=== PATIENT | female | born 1985 | race Caucasian/White ===

== ENCOUNTER 2016-10-28 10:04 | Emergency (ER) | payer MEDICAID ==
[2016-10-28 10:39] VITALS: BP 160/89
--- NOTE | 2016-10-28 10:50 | UC ---
Skin Complaint HPI - HPI Summary HPI Summary: 31 y/o female presents to the urgent care for wound check up. Pt reports she just had her 3rd done approximately 3 weeks ago. She noticed about 2 days ago that is mild redness and moderated draining w/ bloody yellow drainage at times. Her delivered was done at [place]. She just moved to [place] and doesn't have an OBGYN. Pain is 4/10 specially at touch and with bending. She has not taking anything to alleviate symptoms. LMP: 11/20/2015. She also states she develop elevated BP at the end of her . Pt denies fever, SOB, chest pain, abdominal pain. N/V/D., - History of Current Complaint Chief Complaint: UCWounds Time Seen by Provider: 10/28/16 10:40 Stated Complaint: WOUND RECHECK Hx Obtained From: Patient Hx Last Menstrual Period: currently ?: No Onset/Duration: Gradual Onset, Lasting Days - 2, Still Present Skin Exposure Onset/Duration: Weeks Ago - 3 weeks ago c-sectione performed Onset Severity: Mild Current Severity: Moderate Pain Intensity: 4 Pain Scale Used: 0-10 Numeric Location: Discrete - above the suprapubic area w/ scar Character: Redness, Painful Aggravating: Touch Alleviating: Nothing Associated Signs & Symptoms: Positive: Negative, Tenderness. Negative: Nausea, Vomiting, Numbness, Fever, Chills, Abdominal Pain Related History: Other: - - Allergy/Home Medications Allergies/Adverse Reactions: Allergies Allergy/AdvReac Type Severity Reaction Status Date / Time Latex Allergy Rash Verified 10/28/16 10:35 Home Medications: Home Medications Amoxicillin PO (*) [Amoxicillin 875 MG (*)] 10/28/16 [History] Review of Systems Constitutional: Negative Skin: Rash - over the above the suprapubic area Eyes: Negative ENT: Negative Respiratory: Negative, Shortness Of Breath Gastrointestinal: Negative Genitourinary: Negative Motor: Negative Neurovascular: Negative Musculoskeletal: Negative Neurological: Negative Psychological: Negative Is Patient Immunocompromised?: No All Other Systems Reviewed And Are Negative: Yes PMH/Surg Hx/FS Hx/Imm Hx Previously Healthy: Yes - Pt denies any PMHX - Surgical History Surgical History: Yes Surgery Procedure, Year, and Place: 3 c-sections - Family History Known Family History: Positive: Cardiac Disease, Hypertension, Diabetes - Social History Occupation: Unemployed Lives: With Family Alcohol Use: None Substance Use Type: None Smoking Status (MU): Heavy Every Day Tobacco Smoker Type: Cigarettes Amount Used/How Often: 1/2 PPD Length of Time of Smoking/Using Tobacco: 14 years Physical Exam Triage Information Reviewed: Yes Appearance: Well-Appearing, No Pain Distress, Well-Nourished, Obese Vital Signs: Initial Vital Signs Temp 98.3 F 10/28/16 10:36 Pulse 66 10/28/16 10:36 Resp 16 10/28/16 10:36 BP 160/89 10/28/16 10:36 Pulse Ox 99 10/28/16 10:36 Vital Signs Reviewed: Yes Eye Exam: Normal - PERRLA, EOMI ENT Exam: Normal ENT: Positive: Normal ENT inspection, Hearing grossly normal, Pharynx normal, TMs normal Neck exam: Normal Neck: Positive: Supple, Nontender, No Lymphadenopathy Respiratory Exam: Normal Respiratory: Positive: Chest non-tender, Lungs clear, Normal breath sounds, No respiratory distress Cardiovascular Exam: Normal Cardiovascular: Positive: RRR, No Murmur, Pulses Normal Abdominal Exam: Normal Abdomen Description: Positive: Nontender, No Organomegaly, Soft. Negative: CVA Tenderness (R), CVA Tenderness (L) Bowel Sounds: Positive: Present Musculoskeletal Exam: Normal Musculoskeletal: Positive: Strength Intact, ROM Intact, No Edema Neurological Exam: Normal Psychological Exam: Normal Skin: Positive: rashes - scar above the suprapubic area and below abdominal skin fold, about 15 cm in size, healing well except for 2 points with mild discrete erythema and 1 mid point draining mild serosanguinous discharge. mild tenderness on deep palpation. no swellingobserved. Course/Dx - Course Course Of Treatment: 31 y/o female presents to the urgent care for c- section wound check up. Pt reports she just had her 3rd done approximately 3 weeks ago. She noticed about 2 days ago that is mild redness and moderated draining w/ bloody yellow drainage at times. Her delivered was done at [place]. She just moved to [place] and doesn't have an OBGYN. Pain is 4 /10 specially at touch and with bending. She has not taking anything to alleviate symptoms. LMP: 11/20/2015. She also states she develop elevated BP at the end of her . Pt denies fever, SOB, chest pain, abdominal pain. N/V /D., Hx obtained. PE abnormal findings:Skin: Positive: rashes - scar above the suprapubic area and below abdominal skin fold, about 15 cm in size, healing well except for 2 points with mild discrete erythema and 1 mid point draining mild serosanguinous discharge. mild tenderness on deep palpation. no swelling observed. Pt Rx Bacitracin topical cream and advised. Pt advised If redness or develops swelling or fever to please f/u with Dr Dupree Surgeon for further evaluation and treatment of your wound. All Pt questions were answered. Pt BP pressure is elevated today w/o Hx of HTN, advised to decrease salt in her diet , monitor BP and if it continues to be elevated to f/u with a PCP from the [facility] for further evaluation and treatment. Pt undertood and agreed. Left the clinic ambulating. A&OX3 - Differential Diagnoses - Skin Complaint Differential Diagnoses: Abscess, Angioedema, Cellulitis, Local Allergic Reaction , Urticaria - Diagnoses Provider Diagnoses: 1- wound check s/o C-setion. 2-rash - Physician Notification/Consults Discussed Patient Care With: Orlando Keating - Dr Keating agreed with Pt care and plan Discharge - Discharge Plan Condition: Stable Disposition: HOME Prescriptions: Bacitracin OINTMENT* 1 applic TOPICAL TID #1 tube Patient Education Materials: Low Sodium Diet (ED), Surgical Site Infections (ED ) Referrals: No Primary Care Phys,NOPCP [Primary Care Provider] - [facility] PHYSICIAN REFERRAL [Outside] Reny Dupree MD [Medical Doctor] - 3 Days Additional Instructions: 1- Please apply topical antibiotic on affected areas as directed, Kepp wound dry and clean. 2- If redness and swelling increases and you develop fever please f/u with Dr Dupree Surgeon for further evaluation and treatment of your wound. 3-Avoid heavy lifting, bending over or strenuous exercise 4- Your BP today is elevated, please decrease salt in your diet, monitor your BP , if it continues to be elevated please f/y with your PCP for further management.
== END 2016-10-28 11:25 | disposition home or self-care (01) ==
LOC: UCEAST 10:04
DX: J02.8 Acute pharyngitis due to other specified organisms (principal); B97.89 Other viral agents as the cause of diseases classified elsewhere
CPT/HCPCS: 99212; G0463

== ENCOUNTER 2017-04-28 18:12 | Emergency (ER) | payer MEDICAID, OTHER ==
--- NOTE | 2017-04-28 19:56 | UC ---
HPI Febrile Illness - HPI Summary HPI Summary: 31 yo smoker p/w ongoing fever x 2 days that is responding to Tylenol but still seems to come back. Fever is associated with body aches and chills. - History of Current Complaint Chief Complaint: UCRespiratory Time Seen by Provider: 04/28/17 19:42 Hx Obtained From: Patient Hx Last Menstrual Period: inplanon Timing: Constant, Lasting Days Initial Severity: Moderate Current Severity: Moderate Pain Intensity: 0 - Allergy/Home Medications Allergies/Adverse Reactions: Allergies Allergy/AdvReac Type Severity Reaction Status Date / Time latex Allergy Rash Verified 04/28/17 18:34 Home Medications: Home Medications Acetaminophen [Extra Strength Non-Aspirin] 2,000 mg PO 04/28/17 [History] PMH/Surg Hx/FS Hx/Imm Hx Previously Healthy: Yes Respiratory History: Other - smokers cough Other Respiratory History: smoker's cough - Surgical History Surgical History: Yes Surgery Procedure, Year, and Place: 3 c-sections - Family History Known Family History: Positive: Cardiac Disease, Hypertension, Diabetes - Social History Alcohol Use: None Substance Use Type: None Smoking Status (MU): Heavy Every Day Tobacco Smoker Type: Cigarettes Amount Used/How Often: 1/2 PPD Length of Time of Smoking/Using Tobacco: 14 years Review of Systems Constitutional: Fever, Chills, Fatigue Skin: Negative Eyes: Negative ENT: Negative Respiratory: Cough, Other - left chest wall pain with cough Cardiovascular: Negative Gastrointestinal: Negative Genitourinary: Negative Motor: Negative Neurovascular: Negative Musculoskeletal: Negative Neurological: Negative Psychological: Negative All Other Systems Reviewed And Are Negative: Yes Physical Exam Triage Information Reviewed: Yes Appearance: No Pain Distress, Ill-Appearing Vital Signs: Initial Vital Signs Temp 36.8 C 04/28/17 18:31 Pulse 87 04/28/17 18:31 Resp 18 04/28/17 18:31 BP 142/91 04/28/17 18:31 Pulse Ox 100 04/28/17 18:31 Eye Exam: Normal ENT Exam: Normal ENT: Positive: Normal ENT inspection Dental Exam: Normal Neck exam: Normal Neck: Positive: 1 Respiratory: Positive: Other: - coarse BS B/L, pleuritic chest wall pain with cough on left mid-axillary line Cardiovascular Exam: Normal Abdominal Exam: Normal Musculoskeletal: Positive: Other: - diffuse muscle tenderness Neurological Exam: Normal Psychological Exam: Normal Skin Exam: Normal Course/Dx - Course Course Of Treatment: CXR neg for acute infiltrates but s/s c/w bronchitis - Diagnoses Clinic Provider Diagnoses: acute bronchitis. Flu-like illness. viral syndrome. Elevated BP in acute illness Discharge - Discharge Plan Condition: Stable Disposition: HOME Prescriptions: Azithromycin TAB* [Zithromax TAB (Z-MOOSE) 250 mg #6 tabs] 2 tab PO .TODAY, THEN 1 DAILY #1 moose Oseltamivir CAP* [Tamiflu CAP*] 75 mg PO BID 5 Days #10 cap Patient Education Materials: Acute Bronchitis (ED), Viral Syndrome (ED) Referrals: No Primary Care Phys,NOPCP [Primary Care Provider] - Additional Instructions: take medication as directed and continue fever control
--- NOTE | 2017-04-28 20:14 | RAD ---
HISTORY: Pleuritic chest pain COMPARISONS: August 21, 2004 VIEWS: 4: Frontal dual-energy and lateral views of the chest. FINDINGS: CARDIOMEDIASTINAL SILHOUETTE: The cardiomediastinal silhouette is normal. DEBI: The debi are normal. PLEURA: The costophrenic angles are sharp. No pleural abnormalities are noted. LUNG PARENCHYMA: The lungs are clear. ABDOMEN: The upper abdomen is clear. There is no subphrenic gas. BONES AND SOFT TISSUES: No bone or soft tissue abnormalities are noted. OTHER: None. IMPRESSION: NO ACTIVE CARDIOPULMONARY DISEASE.
[2017-04-28 20:37] VITALS: BP 138/93
== END 2017-04-28 21:00 | disposition home or self-care (01) ==
LOC: UCEAST 18:12
DX: F17.210 Nicotine dependence, cigarettes, uncomplicated (principal); J20.9 Acute bronchitis, unspecified; B34.9 Viral infection, unspecified; R03.0 Elevated blood-pressure reading, without diagnosis of hypertension; R50.9 Fever, unspecified; R52 Pain, unspecified
CPT/HCPCS: 71046; 87502; 99212; G0463

== ENCOUNTER 2017-11-25 11:20 | Emergency (ER) | payer OTHER ==
[2017-11-25 11:38] VITALS: BP 164/95
--- NOTE | 2017-11-25 11:41 | UC ---
Skin Complaint HPI - HPI Summary HPI Summary: This patient is a 32-year-old female who presents to the urgent care with chief complaint of having an infection in the left thigh. She thinks that she got an ingrown hair with a goel which she tried to squeeze out. Now the patient reports pain erythema and increase in temperature. She denies any fever, chills , any calf pain. She has no other complaints. - History of Current Complaint Time Seen by Provider: 11/25/17 11:25 Stated Complaint: LEG PAIN Hx Last Menstrual Period: inplanon - Allergy/Home Medications Allergies/Adverse Reactions: Allergies Allergy/AdvReac Type Severity Reaction Status Date / Time latex Allergy Rash Verified 11/25/17 11:31 Review of Systems Constitutional: Negative All Other Systems Reviewed And Are Negative: Yes - Comments Additional Review of Systems Comments: Constitutional: No Weight Change, No Fever, No Chills, No Night Sweats, No Fatigue, No Malaise ENT/Mouth: No Hearing Changes, No Ear Pain, No Nasal Congestion, No Sinus Pain, No Hoarseness, No sore throat, No Rhinorrhea, No Swallowing Difficulty Eyes: No Eye Pain, No Swelling, No Redness, No Foreign Body, No Discharge, No Vision Changes Cardiovascular: No Chest Pain, No SOB, No PND, No Dyspnea on Exertion, No Orthopnea, No Claudication, No Edema, No Palpitations Respiratory: No Cough, No Sputum, No Wheezing, No Smoke Exposure, No Dyspnea Gastrointestinal: No Nausea, No Vomiting, No Diarrhea, No Constipation, No Pain , No Heartburn, No Anorexia, No Dysphagia, No Hematochezia, No Melena, No Flatulence, No Jaundice Genitourinary: No Dysmenorrhea, No Dyspareunia, No Dysuria, No Urinary Frequency , No Hematuria, No Urinary Incontinence, No Urgency, No Flank Pain, No Urinary Flow Changes, No Hesitancy Musculoskeletal: No Arthralgias, No Myalgias, No Joint Swelling, No Joint Stiffness, No Back Pain, No Neck Pain, No Injury History Skin: Positive erythema with irregular borders, and tenderness to palpation, and increase in temperature in the left eye and then reapproximated of 5-5 cm. There is a positive induration of the skin, there is no abscess formation at this time. PMH/Surg Hx/FS Hx/Imm Hx Previously Healthy: Yes - Surgical History Surgical History: Yes Surgery Procedure, Year, and Place: 3 c-sections - Family History Known Family History: Positive: Cardiac Disease, Hypertension, Diabetes - Social History Alcohol Use: None Substance Use Type: None Smoking Status (MU): Heavy Every Day Tobacco Smoker Type: Cigarettes Amount Used/How Often: 1/2 PPD Length of Time of Smoking/Using Tobacco: 14 years Physical Exam - Summary Physical Exam Summary: VITAL SIGNS: Reviewed. GENERAL: Patient is an obese female who is sitting comfortable in the stretcher. Patient is not in any acute respiratory distress. HEAD AND FACE: Normocephalic and atraumatic. EYES: PERRLA, EOMI x 2, EARS: Hearing grossly intact. MOUTH: Oropharynx within normal limits. NECK: Supple, trachea is midline, no adenopathy, no JVD, no carotid bruit, no c- spine tenderness, neck with full ROM. CHEST: Symmetric, no tenderness at palpation LUNGS: CTA B/L. No wheezing or crackles. CVS: RRR, S1 and S2 present, no murmurs or gallops appreciated. ABDOMEN: Soft, NT, No distention. Normal BS. EXTREMITIES: FROM in all major joints, no edema, no cyanosis or clubbing. NEURO: Alert and oriented x 3. No acute neurological deficits. Speech is normal and follows commands. SKIN: Positive erythema, swelling, increase in temperature, in the left thigh. The area is approximately 5 cm 5 cm. He has irregular borders. There is a positive skin induration. No abscess formation. Triage Information Reviewed: Yes Vital Signs Reviewed: Yes Course/Dx - Course Course Of Treatment: It seems that the patient is dealing with a cellulitis in the left eye. At this time there is no abscess formation therefore no need for an I&D. At this time the patient will be given Bactrim for the cellulitis and she will be discharged home with follow-up with primary care physician. She was given instructions that if the pain increases, the area of the cellulitis increases she should return to the urgent care or go to the emergency department for reassessment. The patient understands and agrees. Patient is hemodynamically stable alert and oriented 3. ELEVATED BLOOD PRESSURE: Patient s blood pressure was noted to be elevated. The patient was instructed to follow up with primary care provider for reassessment of increased blood pressure. - Differential Diagnoses - Skin Complaint Differential Diagnoses: Abscess, Cellulitis, Local Allergic Reaction, Poison Nya , Poison Kelliher - Diagnoses Provider Diagnoses: Cellulitis Discharge - Sign-Out/Discharge Documenting (check all that apply): Patient Departure All imaging exams completed and their final reports reviewed: No Studies - Discharge Plan Condition: Stable Disposition: HOME Prescriptions: Sulfamethox/Trimethoprim DS* [Bactrim DS 800/160 TAB*] 1 tab PO BID #20 tab Patient Education Materials: Cellulitis (DC) Referrals: Gaby French MD [Primary Care Provider] - Additional Instructions: Take medications as instructed and adhere to plan Take Acetaminophen or ibuprofen for pain or fever Increase your fluid intake Return to the or go to the emergency department if symptoms worsen Follow-up with primary care physician in next 2-3 days - Billing Disposition and Condition Condition: STABLE Disposition: Home
== END 2017-11-25 11:50 | disposition home or self-care (01) ==
LOC: UCEAST 11:20
DX: L03.116 Cellulitis of left lower limb (principal); E66.9 Obesity, unspecified; R03.0 Elevated blood-pressure reading, without diagnosis of hypertension; Z91.040 Latex allergy status; F17.210 Nicotine dependence, cigarettes, uncomplicated
CPT/HCPCS: 99212; G0463

== ENCOUNTER 2017-11-27 10:40 | Emergency (ER) | payer OTHER ==
[2017-11-27 11:14] VITALS: BP 150/98
--- NOTE | 2017-11-27 11:39 | UC ---
Skin Complaint HPI - HPI Summary HPI Summary: 32 yo female presents with abscess to left thigh. She tells me that she was seen here 2 days ago and dx'd with cellulitis and placed on Bactrim. She has been taking the Bactrim, but today has noticed the area is hard and swollen and thinks it could be drained. Denies fever or chills. - History of Current Complaint Chief Complaint: UCSkin Time Seen by Provider: 11/27/17 11:38 Stated Complaint: RECHECK OF SKIN ISSUE Hx Obtained From: Patient Hx Last Menstrual Period: inplanon Onset/Duration: Gradual Onset Onset Severity: Moderate Current Severity: Severe Pain Intensity: 9 Pain Scale Used: 0-10 Numeric - Allergy/Home Medications Allergies/Adverse Reactions: Allergies Allergy/AdvReac Type Severity Reaction Status Date / Time latex Allergy Rash Verified 11/27/17 11:14 Review of Systems Constitutional: Negative Skin: Other - Abscess left thigh Respiratory: Negative Cardiovascular: Negative Neurovascular: Negative Neurological: Negative Psychological: Negative All Other Systems Reviewed And Are Negative: Yes PMH/Surg Hx/FS Hx/Imm Hx - Additional Past Medical History Additional PMH: None - Surgical History Surgical History: Yes Surgery Procedure, Year, and Place: 3 c-sections - Family History Known Family History: Positive: Cardiac Disease, Hypertension, Diabetes - Social History Occupation: Employed Full-time Lives: With Family Alcohol Use: Occasionally Substance Use Type: Marijuana Substance Use Comment - Amount & Last Used: once a month Smoking Status (MU): Light Every Day Tobacco Smoker Type: Cigarettes Amount Used/How Often: 1/2 PPD Length of Time of Smoking/Using Tobacco: 14 years Physical Exam - Summary Physical Exam Summary: Vital Signs: Temp Pulse Resp BP Pulse Ox 97.9 F 73 18 150/98 100 11/27/17 11:10 11/27/17 11:10 11/27/17 11:10 11/27/17 11:10 11/27/17 11:10 GENERAL: NAD. WDWN. No pain distress. SKIN: LEFT THIGH: Anteriolateral aspect with 2.0cm area of induration and tenderness. Surround 6.0cm of mild erythema and warmth. No streaking, bleeding, or drainage. NECK: Supple. Nontender. No lymphadenopathy. CHEST: No accessory muscle use. Breathing comfortably and in no distress. CV: Pulses intact. Cap refill <2seconds NEURO: Alert. PSYCH: Age appropriate behavior. Triage Information Reviewed: Yes Vital Signs: Initial Vital Signs Temp 97.9 F 11/27/17 11:10 Pulse 73 11/27/17 11:10 Resp 18 11/27/17 11:10 BP 150/98 11/27/17 11:10 Pulse Ox 100 11/27/17 11:10 Vital Signs Reviewed: Yes Course/Dx - Course Course Of Treatment: The procedure was explained to the pt and all questions were answered. A time out was performed, witnessed, and signed. The area was cleansed with an alcohol pad. 2mL of 2% lidocaine without epi was administered and good anesthetization was achieved. A #11 blade was used to bogdan the center of the abscess. Copious think yellow purulent matter was able to be expressed. The wound was bandaged with telfa. Pt tolerated procedure well. - Diagnoses Provider Diagnoses: Abscess left thigh Procedures - Incision and Drainage Left Upper Thigh Anesthesia: Local Instrument(s): Scalpel Packing: Other - None Discharge - Sign-Out/Discharge Documenting (check all that apply): Patient Departure All imaging exams completed and their final reports reviewed: No Studies - Discharge Plan Condition: Stable Disposition: HOME Prescriptions: traMADol TAB* [Ultram*] 50 mg PO Q12H PRN #6 tab MDD 2 PRN Reason: Pain Patient Education Materials: Abscess (ED) Referrals: Gaby French MD [Primary Care Provider] - Additional Instructions: If you develop a fever, shortness of breath, chest pain, new or worsening symptoms - please call your PCP or go to the ED. Your blood pressure was high at todays visit. Please see your primary provider within 4 weeks for recheck and re-evaluation. 1) Keep the area covered until well healed. 2) Continue taking your antibiotic - Billing Disposition and Condition Condition: STABLE Disposition: Home
[2017-11-27] MEDS ORDERED: Lidocaine 2% PF * 5 ML VIAL INJ ONE (11:42)
== END 2017-11-27 12:45 | disposition home or self-care (01) ==
LOC: UCEAST 10:40
DX: L02.416 Cutaneous abscess of left lower limb (principal); Z91.040 Latex allergy status; F17.210 Nicotine dependence, cigarettes, uncomplicated
CPT/HCPCS: 10060; 99212; G0463

== ENCOUNTER 2018-08-13 08:45 | Inpatient (IN) | payer MEDICAID, OTHER ==
[2018-09-30] MEDS ORDERED: Buffered Lidocaine 1% SYRIN* 1 ML/SYRINGE INTRADERM ONE (14:19)
[2018-10-01] MEDS ORDERED: Lactated Ringers 1000 ML Bag* 1,000 ML IV SCH (06:00)
[2018-10-01] MEDS ORDERED: Famotidine IV* 10 MG/ML 2 ML (20 mg) IV ONE (06:00)
[2018-10-01] MEDS ORDERED: Scopolamine 1.5 mg* PATCH TRANSDERM ONE (06:00)
[2018-10-01] MEDS ORDERED: Heparin VIAL(*) 5000 UNITS/ML VIAL (FIVE THOUSAND) ONE (08:54)
[2018-10-01] MEDS ORDERED: Buffered Lidocaine 1% SYRIN* 1 ML/SYRINGE INTRADERM ONE (08:54)
[2018-10-01] MEDS ORDERED: Scopolamine 1.5 mg* PATCH ONE (08:54)
[2018-10-01] MEDS ORDERED: ceFAZolin 2 GM in NS PREMIX(*) 2 GM/100 ML BAG IVPB ONE (08:55)
[2018-10-01] MEDS ORDERED: ceFAZolin 1 GM ADVAN(*) 1 GM ADDV.VIAL IVPB ONE (08:55)
[2018-10-01] MEDS ORDERED: Famotidine IV* 10 MG/ML 2 ML (20 mg) ONE (08:55)
[2018-10-01 09:43] LABS: Urine Appearance Turbid; Urine Bacteria Absent (Absent); Urine Bilirubin Negative (Negative); Urine Blood Negative (Negative); Urine Color Amber; Urine Glucose Negative (Negative); Urine Ketones Negative (Negative); Urine Nitrite Negative (Negative); Urine Protein Negative (Negative); Urine Red Blood Cell 2+(6-10/hpf) (Absent); Urine Specific Gravity 1.019 (1.010-1.030); Urine Squamous Epithelial Cell Present (Absent); Urine Urobilinogen Negative (Negative); Urine White Blood Cell Trace(0-5/hpf) (Absent)
[2018-10-01] MEDS ORDERED: Midazolam* 1 MG/ML 5 ML VIAL (5 MG) ONE (10:16)
[2018-10-01] MEDS ORDERED: Lidocaine 2% PF * 5 ML VIAL ONE (10:16)
[2018-10-01] MEDS ORDERED: Rocuronium* 10 MG/ML VIAL ONE (10:16)
[2018-10-01] MEDS ORDERED: Dexamethasone IV* 4 MG/ML 1 ML (4 MG) ONE (10:16)
[2018-10-01] MEDS ORDERED: KETAMINE HCL* 50 MG/ML 10 ML VIAL ONE (10:16)
[2018-10-01] MEDS ORDERED: Propofol* 10 MG/ML 20 ML BTL ONE (10:16)
[2018-10-01] MEDS ORDERED: fentaNYL* 50 MCG/ML 5 ML VIAL (250 MCG VIAL) ONE (10:16)
[2018-10-01] MEDS ORDERED: Ondansetron INJ* 2 MG/ML VIAL ONE ×2 (10:16→15:07)
[2018-10-01] MEDS ORDERED: Bupivacaine 0.25% EPI 200,000* 30 ML SDV ONE (11:34)
[2018-10-01] MEDS ORDERED: Methylene Blue 0.5 %* 50 MG/10 ML AMP IV ONE (11:49)
[2018-10-01] MEDS ORDERED: Glycopyrrolate IV* 0.2 MG/ML 1 ML VIAL ONE (13:14)
[2018-10-01] MEDS ORDERED: Neostigmine Methylsulfate* 1 MG/ML 10 ML VIAL (1 mg/ml) ONE (13:14)
[2018-10-01] MEDS ORDERED: HYDROmorphone INJ1* 1 MG/ML SYRINGE ONE (13:14)
[2018-10-01] MEDS ORDERED: Naloxone* 0.4 MG/ML 1 ML VIAL IV PRN (13:16)
[2018-10-01] MEDS ORDERED: Ondansetron INJ* 2 MG/ML VIAL IV PRN (13:16)
[2018-10-01] MEDS ORDERED: fentaNYL* 50 MCG/ML 2 ML VIAL (100 MCG VIAL) ONE ×4 (13:26→16:04)
[2018-10-01] MEDS ORDERED: HYDROmorphone INJ1* 1 MG/ML SYRINGE IV SLOW PU PRN (13:57)
[2018-10-01] MEDS ORDERED: diPHENhydraMINE IV* 50 MG/ML 1 ml VIAL (BENADRYL) SLOW PUSH PRN (13:57)
[2018-10-01] MEDS ORDERED: Acetaminophen ADULT LIQ* 650 MG/20.3 ML UDC PO PRN (13:57)
--- NOTE | 2018-10-01 13:57 | OP ---
Operative Report - Blank - Operative Report Date of Operation: 10/01/18 Note: Brief Operative Note Preop Dx: Class II obesity with comorbidities Postop Dx: same Procedure: Laparoscopic Octavia en Y gastric bypass Anesthesia: GET Surgeon: Lina Pediatric Lpn: ZULLY Woo; SOHAM Dave Fluids: 1600ml RL EBL: < 50 ml Specimen: none Drains: none Findings: as above Complications: none
[2018-10-01] MEDS ORDERED: Metoprolol Tartrate IV* 1 MG/ML 5 ML VIAL IV PRN (14:04)
[2018-10-01] MEDS: fentaNYL* 50 MCG/ML 2 ML VIAL (100 MCG VIAL) IV PRN ×5 (14:10→16:05)
[2018-10-01] MEDS ORDERED: Labetalol IV* 5 MG/ML 20 ML VIAL ONE (14:18)
[2018-10-01] MEDS ORDERED: hydrALAZINE IV* 20 MG/ML VIAL ONE (15:24)
[2018-10-01] MEDS: Lactated Ringers 1000 ML Bag* 1,000 ML IV SCH ×2 (16:43→23:18)
[2018-10-01] MEDS: Ondansetron INJ* 2 MG/ML VIAL IV PRN ×2 (17:03→23:13)
[2018-10-01] MEDS: HYDROmorphone INJ1* 1 MG/ML SYRINGE IV SLOW PU PRN ×3 (17:03→23:26)
[2018-10-01] MEDS: Ketorolac INJ* 30 MG/ML 1 ML VIAL IV PRN (18:00)
[2018-10-01] MEDS: Famotidine IV* 10 MG/ML 2 ML (20 mg) IV SLOW PU SCH (20:24)
[2018-10-01] MEDS: Heparin VIAL(*) 5000 UNITS/ML VIAL (FIVE THOUSAND) SUBCUT SCH (22:37)
[2018-10-02] MEDS: Ketorolac INJ* 30 MG/ML 1 ML VIAL IV PRN ×4 (00:20→19:29)
[2018-10-02] MEDS: HYDROmorphone INJ1* 1 MG/ML SYRINGE IV SLOW PU PRN ×2 (03:00→06:03)
[2018-10-02] MEDS: Heparin VIAL(*) 5000 UNITS/ML VIAL (FIVE THOUSAND) SUBCUT SCH ×3 (05:53→21:55)
[2018-10-02] MEDS: Ondansetron INJ* 2 MG/ML VIAL IV PRN ×2 (05:55→14:19)
[2018-10-02] MEDS: Lactated Ringers 1000 ML Bag* 1,000 ML IV SCH (06:17)
--- NOTE | 2018-10-02 07:39 | OP ---
CC: [facility]; Gaby French MD.* DATE OF OPERATION: 10/01/18 - ROOM #351 DATE OF : 83 SURGEON: Kiko Mills MD CRAS: ZULLY Burgess ANESTHESIOLOGIST: John Mccabe MD ANESTHESIA: General endotracheal. PRE-OP DIAGNOSIS: Class 2 obesity with comorbidities. POST-OP DIAGNOSIS: Class 2 obesity with comorbidities. OPERATIVE PROCEDURE: Laparoscopic Octavia-en-Y gastric bypass. ESTIMATED BLOOD LOSS: Less than 50 mL. IV FLUIDS: 1.6 L of crystalloids. SPECIMEN: None. DRAINS: None. COMPLICATIONS: None. COUNT: Instrument, needle, and sponge counts were correct. DESCRIPTION OF PROCEDURE: The patient was brought to the operating room and placed on the table supine. Sequential compression devices were placed on both lower extremities. General anesthesia was administered. The area was prepped and draped in the usual sterile fashion. Time-out was performed. Local anesthetic was infiltrated into the skin and soft tissue prior to making each incision. Entry into the abdomen was through a left upper quadrant incision accommodating a 12 mm optical trocar. After accessing the peritoneal cavity, carbon dioxide was insufflated to a pressure of 15 mmHg. Under direct visualization, 12 mm bladeless trocars were placed in the supraumbilical, midline and right upper quadrant. 5 mm trocars were placed in the right upper quadrant medially and left upper quadrant laterally. A Stephany liver retractor was placed percutaneously in a subxiphoid position and used to elevate the left lobe of the liver. Gastric anatomy appeared to be normal. The mobilization of the stomach away from the left arleth of the diaphragm was performed bluntly. The lesser sac was then entered via perigastric dissection on the lesser curvature. With several firings of the EndoGIA stapler with collier staple cartridges, the gastric pouch was created approximating 15 to 30 mL volume. Next, the omentum was retracted cephalad along with the transverse colon. The ligament of Treitz was identified. The jejunum was measured at approximately 40 to 50 cm and the loop was brought in proximity to the gastric pouch and sutured to the left lateral staple line with interrupted 2-0 silk. The gastrojejunal anastomosis was then performed with a 30- mm EndoGIA stapler and the common gastroenterotomy was run closed with 3-0 PDS over a 34 Fr. gastric lavage tube. The jejunal loop was divided to the left of the anastomosis to complete it. The anastomosis was then tested with methylene blue dye solution instilled through the orogastric tube and no leak was identified. The jejunum was then measured from the anastomosis for 75 cm. At this point, a functional end-to- side jejunojejunostomy was created with a 60- mm EndoGIA stapler. The common enterotomy was closed again with 3-0 PDS in 1 layer tieing it to itself. Anti- obstruction sutures of 3-0 silk were placed proximal to the anastomosis, and the jejunal mesenteric defect was closed with interrupted 3-0 silks. Inspection revealed excellent hemostasis. The proper orientation of the Octavia limb was confirmed. The Stephany liver retractor was then removed and the ports were removed under direct visualization. Carbon dioxide was released. Incisions were closed with 4-0 Monocryl in subcuticular fashion and DermaFlex was applied. She was transferred to the PACU in a stable condition. [id number]/[facility] #: [id number] EREN
[2018-10-02] MEDS: Famotidine IV* 10 MG/ML 2 ML (20 mg) IV SLOW PU SCH ×2 (09:03→21:54)
--- NOTE | 2018-10-02 09:18 | PN ---
Progress Note - Progress Note Date of Service: 10/02/18 SOAP: Subjective: Having left flank pain relieved by flatus. No N/V. Pain controlled. Objective: Vital Signs Temp 98.1 F 10/02/18 07:59 Pulse 46 10/02/18 07:59 Resp 18 10/02/18 07:59 BP 146/97 10/02/18 07:59 Pulse Ox 99 10/02/18 07:59 Gen: NAD Abd: incisions c/d/i; no erythema; soft and min tender. Intake & Output 10/01/18 10/02/18 10/02/18 18:59 06:59 18:59 Intake Total 1700 1970 Output Total 100 1300 Balance 1600 670 Weight 221 lb Intake: IV Fluids 1700 1915 LR 1700 1915 IVPB 55 metoprolol 55 Oral 0 Output: Urine 100 1300 Assessment: POD#1 s/p LRYGB. Doing well. Plan: Adv diet. PO meds. Ambulate. Likely home tomorrow.
[2018-10-02] MEDS: HYDROcodone/ACET. 7.5/325 LIQ* 15 ML UDC PO PRN ×3 (09:32→21:55)
[2018-10-02] MEDS: D5W 1/2 NS KCl 20 Meq 1000 ML* 1,000 ML IV SCH ×2 (13:29→22:54)
[2018-10-03] MEDS: HYDROcodone/ACET. 7.5/325 LIQ* 15 ML UDC PO PRN ×2 (03:54→11:57)
[2018-10-03] MEDS: Heparin VIAL(*) 5000 UNITS/ML VIAL (FIVE THOUSAND) SUBCUT SCH (06:28)
[2018-10-03] MEDS: Ketorolac INJ* 30 MG/ML 1 ML VIAL IV PRN (06:43)
[2018-10-03] MEDS: D5W 1/2 NS KCl 20 Meq 1000 ML* 1,000 ML IV SCH (07:24)
[2018-10-03] MEDS: Famotidine IV* 10 MG/ML 2 ML (20 mg) IV SLOW PU SCH (08:47)
--- NOTE | 2018-10-03 11:20 | PN ---
Progress Note - Progress Note Date of Service: 10/03/18 SOAP: Subjective:tolerating lenora clears;passing flatus;good pain control;ambulating [] Objective: Vital Signs Temp 98.2 F 10/03/18 07:24 Pulse 45 10/03/18 07:24 Resp 18 10/03/18 08:00 BP 123/76 10/03/18 07:24 Pulse Ox 100 10/03/18 08:00 Intake & Output 10/02/18 10/03/18 10/03/18 18:59 06:59 18:59 Intake Total 980 1860 1125 Output Total 450 1400 0 Balance 343 676 8012 Intake: IV Fluids 980 990 D5W 1/2 NS 20 meq KCL 990 LR 980 IVPB 1125 D5W 1/2 NS 20 meq KCL 1125 Oral 870 Output: Urine 450 1400 0 Other: # Bowel Movements 0 lungs:clear bilat;heart:RRR,asymptomatic bradycardia;abd:+bs,soft,incisions c/d/ i with appropriate tenderness;ext:no edema [] Assessment:POD#2 s/p laparoscopic gastric bypass,doing well,condition stable and meeting criteria for discharge [] Plan:discharge home today;discharge instructions reviewed;follow up appt at [facility] 10/10/18 []
[2018-10-03 11:32] VITALS: BP 134/82
--- NOTE | 2018-10-03 14:00 | DS ---
AMENDED REPORT NOW INCLUDES DESIGNATED COSIGNER CC: Dr. French; [facility] * DISCHARGE SUMMARY: DATE OF ADMISSION: 10/01/18. DATE OF DISCHARGE: , 10/03/18. CONDITION ON DISCHARGE: Stable. ATTENDING SURGEON: Kiko Mills MD * (DICTATED BY ALFONSO SANON NP) HOSPITAL COURSE: Please refer to admission history and physical for admission details. The patient was taken to the operating room on 10/01/18, and underwent laparoscopic Octavia-en-Y gastric bypass by Dr. Mills. She had an uneventful postoperative course and required minimal pain medication and was able to meet the criteria for oral intake of bariatric clear liquids. She was ambulating in the halls and using her Inspiron. She was seen earlier this morning by Dr. Mills and myself and she met criteria for discharge. PHYSICAL EXAMINATION: General: Well appearing, in no acute distress. Vital Signs: Temperature 98.2, heart rate 52, respiratory rate 18, blood pressure 123 /76, O2 saturation on room air 100%. Lungs: Breath sounds bilaterally clear and equal. Heart: Regular rate and rhythm. She has had bradycardia as low as 45 and is asymptomatic. No murmurs or rubs appreciated. Abdomen: Laparoscopic port sites are clean and dry with appropriate tenderness; the patient removed all of the dressings this morning. There was no surrounding erythema or drainage and she has active bowel sounds. Skin: Warm and dry. Extremities: Nontender calves. No edema. IMPRESSION: Postoperative day #2 status post laparoscopic Octavia-en-Y gastric bypass, doing extremely well and meeting criteria for discharge. PLAN: Discharge home today. Instructions were reviewed with the patient; she has a followup appointment at [facility] on 10/10/18. I have instructed her to hold lisinopril/hydrochlorothiazide and resume amlodipine. She has a prescription for liquid hydrocodone/acetaminophen at home and she may use [id number] adult strength liquid Tylenol for mild pain. ALFONSO SANON NP [id number]/[facility] #: [id number] [facility] HOSPITALJeison
[2018-10-04] MEDS ORDERED: Scopolamine PATCH Remove* 1 NOTE MISC PATCH OFF ONE (06:00)
== END 2018-10-03 12:01 | disposition home or self-care (01) | DRG 403 ==
LOC: AA 10-01 08:20 → SSU 10-01 16:31
PROVIDERS: ADMIT Surgery; ATTEND Surgery
PROC: 0D164ZA Bypass Stomach to Jejunum, Percutaneous Endoscopic Approach (ICD-10-PCS; principal; 2018-10-01 10:15)
DX: E66.01 Morbid (severe) obesity due to excess calories (principal); I10 Essential (primary) hypertension; M79.671 Pain in right foot; R00.1 Bradycardia, unspecified; G43.909 Migraine, unspecified, not intractable, without status migrainosus; Z91.040 Latex allergy status; Z83.3 Family history of diabetes mellitus; Z82.49 Family history of ischemic heart disease and other diseases of the circulatory system; Z82.61 Family history of arthritis; Z80.1 Family history of malignant neoplasm of trachea, bronchus and lung; Z68.39 Body mass index [BMI] 39.0-39.9, adult; Z80.0 Family history of malignant neoplasm of digestive organs; Z83.49 Family history of other endocrine, nutritional and metabolic diseases; Z87.891 Personal history of nicotine dependence
CPT/HCPCS: 43644; 81003; 81015; 81025; 87086; A9270-GY; C1776; J0360; J0690; J1100; J1170; J1644; J1885; J2250; J2405; J2704; J2710; J3010; J3490

== ENCOUNTER 2018-12-23 12:26 | Emergency (ER) | payer OTHER ==
--- NOTE | 2018-12-23 13:47 | UC ---
Abdominal Pain Female HPI - HPI Summary HPI Summary: 33 yo with onset of left flank pain yesterday, episodes of sharp severe pain with persistent dull ache in the left flank. Has nausea but no vomiting. No gross or micro hematuria, no hx of stones. Has not used analgesics. One episode of loose stool today. She has a hx of loose stools post gastric bypass done in September, but this was unusual. Her main concern is kidney stones. Hx of 3 Cesarian sections in the past. - History of Current Complaint Chief Complaint: UCAbdominalPain Time Seen by Provider: 12/23/18 13:37 Hx Obtained From: Patient Hx Last Menstrual Period: 11/27/18 Onset/Duration: Sudden Onset, Lasting Hours Timing: Intermittent Episodes Lasting: - up to an hour. Severity Initially: Severe Severity Currently: Moderate Pain Intensity: 6 Location: Other - left flank Radiates: No Character: Colicy, Sharp Aggravating Factor(s): Movement - pain worse with her work today. Does cleaning and did exacerbate her pain., Other: - increases post fluid intake; has increased fluids since she read about stones, and it has increased her pain. Alleviating Factor(s): Nothing Associated Signs and Symptoms: Negative: Diaphoresis, Fever, Cough, Back Pain - Risk Factors Ectopic Risk Factor: Negative Ovarian Torsion Risk Factor: Negative Allergies/Adverse Reactions: Allergies Allergy/AdvReac Type Severity Reaction Status Date / Time latex Allergy Intermediate Rash Verified 12/23/18 13:27 PMH/Surg Hx/FS Hx/Imm Hx Previously Healthy: Yes Cardiovascular History: Hypertension - Surgical History Surgical History: Yes Surgery Procedure, Year, and Place: 3 c-sections, gastric bypass 09/2018 - Family History Known Family History: Positive: Cardiac Disease, Hypertension, Diabetes - Social History Occupation: Employed Full-time - works doing cleaning. Alcohol Use: Occasionally Substance Use Type: Marijuana Substance Use Comment - Amount & Last Used: once a month Smoking Status (MU): Light Every Day Tobacco Smoker Type: Cigarettes Amount Used/How Often: 1/2 PPD Length of Time of Smoking/Using Tobacco: 14 years When Did the Patient Quit Smoking/Using Tobacco: 01/2018 - Immunization History Most Recent Influenza Vaccination: 2018 Most Recent Pneumonia Vaccination: never Review of Systems All Other Systems Reviewed And Are Negative: Yes Constitutional: Positive: Negative Skin: Positive: Negative Eyes: Positive: Blurred Vision ENT: Positive: Negative Respiratory: Positive: Negative Cardiovascular: Positive: Negative Gastrointestinal: Positive: Abdominal Pain, Diarrhea, Nausea. Negative: Vomiting Genitourinary: Positive: Negative Motor: Positive: Negative Neurovascular: Positive: Negative Musculoskeletal: Positive: Negative Neurological: Positive: Negative Psychological: Positive: Negative Is Patient Immunocompromised?: No Physical Exam Triage Information Reviewed: Yes Appearance: Ill-Appearing - looks mildly unwell, Pain Distress - mild to moderate. Vital Signs: Initial Vital Signs Temp 98.3 F 12/23/18 13:18 Pulse 85 12/23/18 13:18 Resp 16 12/23/18 13:18 BP 150/120 12/23/18 13:18 Pulse Ox 100 12/23/18 13:18 Eye Exam: Normal ENT Exam: Normal Dental Exam: Normal Neck: Positive: Supple, Nontender, No Lymphadenopathy Respiratory: Positive: Lungs clear, Normal breath sounds Cardiovascular: Positive: RRR, No Murmur Abdominal Exam: Other - well healed puncture wounds on anterior abdomen. Abdomen Description: Positive: No Organomegaly, Soft, Guarding - voluntary guarding with palpation of the left flank, LUQ area.. Negative: CVA Tenderness (R), CVA Tenderness (L), Distended, Hepatomegaly, Peritoneal Signs, Splenomegaly Bowel Sounds: Positive: Present Musculoskeletal Exam: Normal Neurological Exam: Normal Diagnostics - Laboratory Lab Results: UA with ketones, bili and protein Abd Pain Female Course/Dx - Course Course Of Treatment: 33 yo with one day history of left flank pain associated with loose stool x 1. Pain is worse with movement and could be musculoskeletal in origin. She is concerned about renal stones and opted for CT abdomen and pelvis for rule out of this. She is getting pain relief with toradol. Has not taken antihypertensive today and her blood pressure is elevated. - Differential Dx/Diagnosis Provider Diagnosis: Acute left flank pain Discharge ED - Sign-Out/Discharge Documenting (check all that apply): Sign-Out Patient - Dr. Milner to review CT Signing out patient TO: Lukas Milner - Discharge Plan Referrals: Gaby French MD [Primary Care Provider] -
[2018-12-23] MEDS ORDERED: Ketorolac *IM* INJ* 60 MG/2 ML VIAL IM ONE (13:59)
[2018-12-23 15:28] VITALS: BP 170/110
--- NOTE | 2018-12-23 15:37 | ED ---
Progress - Progress Note Progress Note: DC home, CT neg. FU with PMD for BP recheck. She is more comfortable, and will take her BP med when she gets home. Course/Dx - Diagnoses Provider Diagnoses: Acute left flank pain, Hypertension Discharge ED - Sign-Out/Discharge Documenting (check all that apply): Patient Departure All imaging exams completed and their final reports reviewed: Yes - Discharge Plan Condition: Good Disposition: HOME Patient Education Materials: Hypertension (ED), Flank Pain (ED) Referrals: Gaby French MD [Primary Care Provider] - 2 Days - Billing Disposition and Condition Condition: GOOD Disposition: Home
== END 2018-12-23 15:43 | disposition home or self-care (01) ==
LOC: UCCORT 12:26
DX: R10.12 Left upper quadrant pain (principal); R11.0 Nausea; R19.7 Diarrhea, unspecified; K76.0 Fatty (change of) liver, not elsewhere classified; R16.1 Splenomegaly, not elsewhere classified; I10 Essential (primary) hypertension; Z98.84 Bariatric surgery status; Z91.040 Latex allergy status; Z87.891 Personal history of nicotine dependence
CPT/HCPCS: 74176; 81003; 96372; 99212; G0463; J1885

== ENCOUNTER 2019-04-04 08:48 | Emergency (ER) | payer OTHER ==
[2019-04-04 09:14] VITALS: BP 170/110
--- NOTE | 2019-04-04 09:19 | UC ---
Eye Complaint HPI - HPI Summary HPI Summary: Pt presents to reporting bilateral eye reddness, yellow drainage R>L and sticky lids. pt with mild congestion. No corrective lenses. No vision changes No fever, chills, rashes. no cough + sick contact with similar not medications as entered in EMR by manager club reviewed this visit - History of Current Complaint Chief Complaint: UCEye Stated Complaint: EYE ISSUE Time Seen by Provider: 04/04/19 09:18 Hx Obtained From: Patient Hx Last Menstrual Period: 04/01/19 Onset/Duration: Gradual Onset Pain Intensity: 6 - Allergies/Home Medications Allergies/Adverse Reactions: Allergies Allergy/AdvReac Type Severity Reaction Status Date / Time latex Allergy Intermediate Rash Verified 04/04/19 09:02 PMH/Surg Hx/FS Hx/Imm Hx Previously Healthy: Yes - Surgical History Surgical History: Yes Surgery Procedure, Year, and Place: 3 c-sections, gastric bypass 09/2018 - Family History Known Family History: Positive: Cardiac Disease, Hypertension, Diabetes, Non- Contributory - Social History Occupation: Unemployed Lives: With Family Alcohol Use: Occasionally Substance Use Type: None Substance Use Comment - Amount & Last Used: once a month Smoking Status (MU): Light Every Day Tobacco Smoker Type: Cigarettes Amount Used/How Often: 4-5 sig/day Length of Time of Smoking/Using Tobacco: 14 years When Did the Patient Quit Smoking/Using Tobacco: 01/2018 - Immunization History Most Recent Influenza Vaccination: 2018 Most Recent Pneumonia Vaccination: never Review of Systems All Other Systems Reviewed And Are Negative: Yes Constitutional: Positive: Negative Eyes: Positive: Drainage, Eye Redness. Negative: Blurred Vision, Photophobia ENT: Positive: Nasal Discharge, Sinus Congestion Respiratory: Positive: Negative Physical Exam - Summary Physical Exam Summary: Vital Signs Reviewed: Yes A+Ox3, no distress Eyes:bilateral injection, , SHAYE. EOM, intact and full, no photophobia, crisp fundoscopic margins right eye: + lid edema mild erythema pt with piercing lateral to right eye 2cm n o erythema, fluctuance, drainage, confluence with lid edema/erythema ENT: Hearing grossly normal TM x 2 clear, turbinates inflammed and boggy, + PND, mmoist, uvula midline, no exudate, no erythema Neck: Positive: Supple Respiratory: Positive: No respiratory distress, No accessory muscle use + CTA throughout no w/r Cardiovascular: RRR nl s1, s2 no m/r CBT <2 sec abd soft + BS nt/nd no guarding, no distension Musculoskeletal Exam: LYLES x 4 without difficulty Strength Intact, ROM Intact Neurological: Positive: Alert, + sensation throughout Psychological: Positive: Normal Response To headend technician Skin: Positive: no rash, no ecchymosis Triage Information Reviewed: Yes Vital Signs: Initial Vital Signs Temp 98.4 F 04/04/19 08:59 Pulse 80 04/04/19 08:59 Resp 16 04/04/19 08:59 BP 175/114 04/04/19 08:59 Pulse Ox 98 04/04/19 08:59 Eye Complaint Course/Dx - Course Course Of Treatment: Pt presents to with b/l eye drainage, injection x 24 hours R>L mild rigt upper lid edema and erythema VS and visual acuity reviewed exam c/w bilateral conjunctivitis pt also with right upper eyelid edema and erythema - pt with piercing right side lateral to lateral canthus - no concern for injection at this exam Rx polytrim - pharmacy called - does not have - changed to cipro oral abx eye care return precaution secretion precaution pt comfortable and in agreement BP elevated - pt has a history of same - did not take medicaiton today - no sx has RX to pickling drum operator at pharmacy encouraged pt to take a prescribed - Differential Dx/Diagnosis Provider Diagnosis: Conjunctivitis, Cellulitis Discharge ED - Sign-Out/Discharge Documenting (check all that apply): Patient Departure All imaging exams completed and their final reports reviewed: No Studies - Discharge Plan Condition: Stable Disposition: HOME Prescriptions: Amoxicillin 500 mg PO BID #14 capsule Ciprofloxacin 0.3% OPTH.YESSI* [Cipro 0.3% Opth*] 2 drop RIGHT EYE Q8HR #1 btl Patient Education Materials: Hypertension (ED), Conjunctivitis (ED) Referrals: Gaby French MD [Primary Care Provider] - Additional Instructions: - apply eye drops to affected every 3 times a day for 5 days. - Take oral antibiotics as prescirbed until gone -okay to alternate ibuprofen (Advil, Motrin) 600mg and tylenol every 3 hours for pain. Take with food - these infections are very contagious - thoroughly wash hands before and after applying eye drops. - wash her bedding, pillows frequently - If eyelids become sticky - use a warm, wet cloth to soften and clean away secretions -contact the data storage specialist to schedule a follow-up or if you have any questions or concerns - Your blood pressure was very high today - it is important you take your blood pressure medication as prescribed - Billing Disposition and Condition Condition: STABLE Disposition: Home
== END 2019-04-04 09:35 | disposition home or self-care (01) ==
LOC: UCEAST 08:48
DX: H10.9 Unspecified conjunctivitis (principal); H00.031 Abscess of right upper eyelid; F17.210 Nicotine dependence, cigarettes, uncomplicated; Z91.040 Latex allergy status
CPT/HCPCS: 99212; G0463

== ENCOUNTER 2019-04-07 14:12 | Emergency (ER) | payer OTHER ==
[2019-04-07] MEDS ORDERED: Fluorescein Sodium TOPICAL* 1 MG TEST STRIP OPHTHALMIC ONE (15:54)
[2019-04-07] MEDS ORDERED: Tetracaine 0.5% OPTH.SOL 4 ML* 1 DROP BTL ONE (15:54)
[2019-04-07 16:16] LABS: ABS Eosinophils 0.1 10^3/ul (0-0.6); ABS Lymphocytes 0.9 10^3/ul (1.0-4.8); ABS Monocytes 0.6 10^3/ul (0-0.8); Eosinophil % 1.6 %; Hematocrit 42 % (35-47); Hemoglobin 14.6 g/dL (12.0-16.0); Lymphocyte % 20.8 %; Mean Corpuscular HGB Conc 35 g/dL (31-36); Mean Corpuscular Hemoglobin 36 pg (27-31); Mean Corpuscular Volume 103 fL (80-97); Nucleated Red Blood Cells % 0.1; Platelet Count 159 10^3/uL (150-450); Red Blood Count 4.05 10^6 /uL (3.70-4.87); Red Cell Distribution Width 13 % (10-15); White Blood Count 4.6 10^3/uL (3.5-10.8)
[2019-04-07 16:28] LABS: Calcium 9.5 mg/dL (8.6-10.3); Potassium 4.1 mmol/L (3.5-5.0); Total Bilirubin 0.8 mg/dL (0.2-1.0)
[2019-04-07 16:34] LABS: Albumin/Globulin Ratio 1.5 (1-3); EGFR African American 117.8 (>60); EGFR Non-African American 97.4 (>60); Globulin 2.7 g/dL (2-4); Total Protein 6.7 g/dL (6.4-8.9)
[2019-04-07] MEDS ORDERED: Iohexol 300* (CONTRAST) 10 ML SDV IV ONE (16:40)
--- NOTE | 2019-04-07 17:17 | ED ---
Throat Pain/Nasal Congestion - HPI Summary HPI Summary: 33 year old female presents with increasing redness and swelling to bilateral eyes. States that she was diagnosed with conjunctivitis. she was placed on Cipro drops and amoxicillin. States that the swelling around her right eyes has increased. She was placing drops in the left eye when today she noticed some redness of the eye left that was not there yesterday. She admits to some blurry vision in the right eye. She does not wear glasses or contacts. She states that she's been having watery drainage from both eyes. States she's been having pain with eye movement of the right eye. Denies any sinus congestion. No fevers. No dental pain. Has history of high blood pressure. no photophobia. no floaters or change in vision. - History of Current Complaint Chief Complaint: EDEyeProblem Time Seen by Provider: 04/07/19 15:46 - Allergies/Home Medications Allergies/Adverse Reactions: Allergies Allergy/AdvReac Type Severity Reaction Status Date / Time latex Allergy Intermediate Rash Verified 04/07/19 14:20 Home Medications: Home Medications Lisinopril/Hydrochlorothiazide [Lisinopril-Hctz 10-12.5 mg Tab] 1 tab PO DAILY 04/07/19 [History Confirmed 04/07/19] Polymyx/Trimethoprim OPTH* [Polytrim OPHTH*] 1 drop RIGHT EYE BID 04/07/19 [ History Confirmed 04/07/19] PMH/Surg Hx/FS Hx/Imm Hx Endocrine/Hematology History: Denies: Hx Diabetes Cardiovascular History: Reports: Hx Hypertension Respiratory History: Reports: Hx Asthma - as a child- no problems as an adult Denies: Other Respiratory Problems/Disorders Sensory History: Denies: Hx Contacts or Glasses, Hx Hearing Aid Opthamlomology History: Denies: Hx Contacts or Glasses Neurological History: Reports: Hx Migraine - improving - Cancer History Hx Chemotherapy: No - Surgical History Surgery Procedure, Year, and Place: 3 c-sections, gastric bypass 09/2018 Hx Anesthesia Reactions: No Infectious Disease History: No Infectious Disease History: Denies: History Other Infectious Disease, Traveled Outside the [place] in Last 30 Days - Family History Known Family History: Positive: Cardiac Disease, Hypertension, Diabetes, Non- Contributory - Social History Alcohol Use: Occasionally Substance Use Type: Reports: Marijuana Substance Use Comment - Amount & Last Used: occassional use Smoking Status (MU): Light Every Day Tobacco Smoker Type: Cigarettes Amount Used/How Often: 4-5 sig/day Length of Time of Smoking/Using Tobacco: 14 years Review of Systems Negative: Fever Positive: Blurred Vision, Drainage, Erythema Positive: Other - swelling around right eye Negative: Chest Pain Negative: Shortness Of Breath All Other Systems Reviewed And Are Negative: Yes Physical Exam Triage Information Reviewed: Yes Vital Signs On Initial Exam: Initial Vitals Temp Pulse Resp BP Pulse Ox 98.0 F 70 14 201/132 99 04/07/19 14:16 04/07/19 14:16 04/07/19 14:16 04/07/19 14:16 04/07/19 14:16 Vital Signs Reviewed: Yes Appearance: Positive: Well-Appearing Skin: Positive: Warm, Dry Head/Face: Positive: Normal Head/Face Inspection Eyes: Positive: EOMI, SHAYE, Conjunctiva Inflammed - bilateral, Discharge - yellow to right eye ENT: Positive: Pharynx normal, TMs normal Respiratory/Lung Sounds: Positive: Clear to Auscultation, Breath Sounds Present Cardiovascular: Positive: Normal, RRR Abdomen Description: Positive: Nontender, Soft Bowel Sounds: Positive: Present Musculoskeletal: Positive: Normal Neurological: Positive: Normal Psychiatric: Positive: Normal Procedures - Sedation Patient Received Moderate/Deep Sedation with Procedure: No Diagnostics - Vital Signs Vital Signs Temp Pulse Resp BP Pulse Ox 04/07/19 14:16 98.0 F 70 14 201/132 99 - Laboratory Lab Results: Lab Results 04/07/19 04/07/19 Range/Units 16:05 16:05 WBC 4.6 (3.5-10.8) 10^3/uL RBC 4.05 (3.70-4.87) 10^6 /uL Hgb 14.6 (12.0-16.0) g/dL Hct 42 (35-47) % MCV 103 H (80-97) fL MCH 36 H (27-31) pg MCHC 35 (31-36) g/dL RDW 13 (10-15) % Plt Count 159 (150-450) 10^3/uL MPV 9.0 (7.4-10.4) fL Neut % (Auto) 64.8 % Lymph % (Auto) 20.8 % [place] % (Auto) 12.4 % Eos % (Auto) 1.6 % Baso % (Auto) 0.4 % Absolute Neuts (auto) 3.0 (1.5-7.7) 10^3/ul Absolute Lymphs (auto) 0.9 L (1.0-4.8) 10^3/ul Absolute Monos (auto) 0.6 (0-0.8) 10^3/ul Absolute Eos (auto) 0.1 (0-0.6) 10^3/ul Absolute Basos (auto) 0.0 (0-0.2) 10^3/ul Absolute Nucleated RBC 0.0 10^3/ul Nucleated RBC % 0.1 Sodium 138 (135-145) mmol/L Potassium 4.1 (3.5-5.0) mmol/L Chloride 106 (101-111) mmol/L Carbon Dioxide 27 (22-32) mmol/L Anion Gap 5 (2-11) mmol/L BUN 9 (6-24) mg/dL Creatinine 0.69 (0.51-0.95) mg/dL Est GFR ( Amer) 117.8 (>60) Est GFR (Non-Af Amer) 97.4 (>60) BUN/Creatinine Ratio 13.0 (8-20) Glucose 86 (70-100) mg/dL Calcium 9.5 (8.6-10.3) mg/dL Total Bilirubin 0.80 (0.2-1.0) mg/dL AST 34 (13-39) U/L ALT 29 (7-52) U/L Alkaline Phosphatase 72 (34-104) U/L Total Protein 6.7 (6.4-8.9) g/dL Albumin 4.0 (3.2-5.2) g/dL Globulin 2.7 (2-4) g/dL Albumin/Globulin Ratio 1.5 (1-3) Result Diagrams: 04/07/19 16:05 04/07/19 16:05 Lab Statement: Any lab studies that have been ordered have been reviewed, and results considered in the medical decision making process. - CT orbit CT Interpretation Completed By: Radiologist Summary of CT Findings: IMPRESSION: Right preseptal swelling and conjunctival hyperemia with no organized fluid collection. No evidence of orbital inflammation. EENT Course/Dx - Course Course Of Treatment: 33 year old female presents with increasing redness and swelling to bilateral eyes. States that she was diagnosed with conjunctivitis. she was placed on Cipro drops and amoxicillin. States that the swelling around her right eyes has increased. She was placing drops in the left eye when today she noticed some redness of the eye left that was not there yesterday. She admits to some blurry vision in the right eye. She does not wear glasses or contacts. She states that she's been having watery drainage from both eyes. States she's been having pain with eye movement of the right eye. Denies any sinus congestion. No fevers. No dental pain. Has history of high blood pressure. no photophobia. no floaters or change in vision. On exam conjunctiva bilaterally injected. Has edema noted of the eyelid of the right eye. Tenderness around the orbit of right eye. Extraocular movements intact. Visual acuity normal. CT shows preseptal swelling. discussed case with dr hopkins symptoms likely due to viral conjuncitivitis and periorbital cellulitis with no enough coverage with just amoxicillin so will add on clindamycin. could also be bleparitis present so told do warm compress. told should follow up with optho. patient understand and agrees with plan. - Differential Diagnoses Differential Diagnoses: Conjunctivitis, Corneal Abrasion, Periorbital/Orbital Cellulitis - Diagnoses Provider Diagnoses: Periorbital cellulitis, Conjunctivitis Discharge ED - Sign-Out/Discharge Documenting (check all that apply): Patient Departure - Discharge Plan Condition: Good Disposition: HOME Prescriptions: Clindamycin Cap(NF) [Clindamycin Cap 300 mg Cap(NF)] 300 mg PO TID #29 cap Patient Education Materials: Periorbital Cellulitis in Adults (ED) Referrals: Gaby French MD [Primary Care Provider] - Martín Meadows MD [Medical Doctor] - Additional Instructions: take clindamycin three times a day in addition follow up with optho continue warm compresses on area Return to ED if develop any new or worsening symptoms - Billing Disposition and Condition Condition: GOOD Disposition: Home - Attestation Statements Provider Attestation: I have seen the patient with the KEE and agree with the plan and documentation below except as noted: 33-year-old female presenting with left eye conjunctivitis. Initially had R sided conjunctivitis. Exam w mild periorbital swelling. On amoxicillin but not good coverage for periorbital cellulitis so switched to clinda. CT neg Kimberly Hopkins MD
[2019-04-07] MEDS ORDERED: Clindamycin CAP* 150 MG PO ONE (18:10)
[2019-04-07 18:35] VITALS: BP 138/105
== END 2019-04-07 18:35 | disposition home or self-care (01) ==
LOC: ED 14:12
DX: L03.213 Periorbital cellulitis (principal); H10.9 Unspecified conjunctivitis; R60.9 Edema, unspecified; I10 Essential (primary) hypertension; H53.8 Other visual disturbances; F17.210 Nicotine dependence, cigarettes, uncomplicated
CPT/HCPCS: 36415; 70481; 80053; 85025; 87070; 87205; 99283; A9270-GY; Q9967